=== PATIENT | female | born 1985 | race Caucasian/White ===

== ENCOUNTER 2021-06-23 02:49 | Day surgery (SDC) | payer OTHER, SELFPAY ==
[2021-06-12 15:30] VITALS: BMI 63.8
--- NOTE | 2021-06-12 15:41 | SUR.PREOP ---
Report to the Outpatient Waiting Room, entrance under the green pavilion located off [facility], at time 0600 on date _06/23/21 . OR Time: . - You will be asked a series of questions to screen for COVID 19 for your protection. - A mask is required within the hospital. - No visitors are allowed at this time. Preoperative COVID Testing Requirements: No COVID Test needed if: (proof is required; if not received patient will have Rapid Test prior to entry) - Patient has received COVID Vaccine at least 14 days prior to procedure date or - Patient has positive COVID test result within last 90 days of surgery date. COVID Test needed if above criteria is not met If not COVID vaccinated a COVID test must be conducted within 72 hours of surgery and patient is asked to isolate self from time of testing until procedure. You will go to the [facility] for your COVID testing. The [facility] site is located at the corner of [address] [facility]. You will only be called if COVID results are positive and your surgeon may reschedule your elective surgery date. Patients may have clear liquids (water, carbonated beverages, clear teas, apple juice) until 3 hours prior to surgery with a maximum of 20 ounces. - No food from midnight until time of surgery - Infants may have breast milk until 4 hours before surgery, formula 6 hours prior to surgery. - Children will be allowed to drink immediately following surgery. If applicable, please bring a bottle or sippy cup to assist with drinking. Juice, water, soda, and popsicles are readily available. For infants on formula, please bring formula the day of surgery. Pacifiers are allowed. Take the following medications with a SIP of water the morning of surgery: _synthroid,labetolol Medications to discontinue per physician ____vitamins Date to take last dose__06/21/21 Please no make-up, nail swedish, hairspray, perfume, deodorant, or body powder the day of surgery. No jewelry (including any body piercings) or valuables the day of surgery, leave them at home. Please take a shower or bath the night before, or the morning of, surgery with an antibacterial soap. Wear comfortable, loose fitting clothing. Children are encouraged to wear pajamas. - Jewelry must be removed prior to entering the operating room. Rings and piercings that are not removed may be cut off. - The hospital will not accept responsibility for valuables. - Please leave all valuables, including medications, at home the day of surgery. If you are going home after surgery, a licensed combine driver must drive you home. - NO public transportation without another adult. - We recommend that an adult stay with you for 24 hours following discharge. - We also recommend that you do not drive, make important decision, drink alcoholic beverages, or take any drugs that were not prescribed by your health care provider for at least 24 hours after your discharge time. For Pediatric surgeries, we recommend two adults accompany the child home (only one inside the building at this time). Follow any additional instructions given to you from your surgeon. Telephone instructions given to _eufemia eddy and asked if any additional questions and then verbalized understanding. Patient advised to call surgeon office or pre surgery nurse liaison [phone] if any additional questions.
[2021-06-23] MEDS: LACTATED RINGERS 1,000 ML 30 ML IV CONT (06:30)
[2021-06-23] MEDS: ACETAMINOPHEN 500 MG TABLET 1000 MG PO (06:52)
[2021-06-23 07:00] VITALS: BP 130/69; PULSE 84; RESP 16; TEMP 36.7; O2SAT 98
[2021-06-23] MEDS: SCOPOLAMINE 1.5 MG PATCH TRANSDERM (07:00)
--- NOTE | 2021-06-23 07:11 | WPDANESEPPF ---
Anes - Initial Pre Proc Eval Procedure: Operation Date: 06/23/21 07:30 Proposed Procedures p Hysteroscopy, Dilation and Curettage - Sara Freeman MD Date/Time: 06/23/21 07:11 Surgeon: Sara Freeman MD Pre Op Diagnosis: Anemia Patient Data Age: 36 Gender: F Height: 1.6 m Weight: 163.63 kg Allergies Allergy/AdvReac Type Severity Reaction Status Date / Time Sulfa (Sulfonamide Allergy Mild RASH Verified 06/12/21 15:07 Antibiotics) Home Medications Medication Instructions Recorded Confirmed Type calcium carbonate [Calcium 500] 1,200 mg PO DAILY 06/12/21 06/12/21 History cholecalciferol (vitamin D3) 10,000 unit PO DAILY 06/12/21 06/12/21 History [Vitamin D3] labetalol 200 mg PO BID 06/12/21 06/12/21 History levothyroxine [Euthyrox] 50 mcg PO DAILY 06/12/21 06/12/21 History uqisxhvjnkzy-afj-slpw-FA-vit K 1 tablet PO DAILY 06/12/21 06/12/21 History [Adults Multivitamin] Patient hx anesthesia problems: post op nausea/vomiting Family hx anesthesia problems: none Results Review: All pre-operative results and documents have been reviewed as part of the pre-operative evaluation. [facility] Social History Social History Smoking status: Former smoker Smoking end date: 05/10/06 Alcohol intake: current Drinks per week: 1 Living arrangements: with family Spiritual care concerns: No Anes - Eval Final PreProcedure Day of Procedure 06/23/21 07:11 Patient weight: super morbidly obese (super super morbid obesity) Heart: regular rate and rhythm Lungs: clear to auscultation Airway: Mallampati scale class III Neurological: alert and oriented Last oral intake: >/= 8 hours ASA classification: IV Emergent: no Anesthetic plan: proceed Anesthesia type and monitoring: general GIVS (may use LMA) and standard monitoring Results Review: All pre-operative results and documents have been reviewed as part of the pre-operative evaluation. Informed Consent: The patient's anesthetic plan and its attendant risks and benefits were discussed with the patient/family/POA. Questions were solicited and answers provided to the satisfaction of the patient/family/POA.
--- NOTE | 2021-06-23 07:18 | PM.HPGS ---
History of Present Illness History of Present Illness Consent: Risks, benefits, and alternatives have been discussed and questions answered. Patient agrees to proceed with procedure. Chief complaint: Anemia Narrative: Marlena Ruiz is a 36 year old female with regular but somewhat heavy cycles. Hemoglobin performed and noted to be 11.3. As a workup for the anemia it is recommended to proceed with D&C hysteroscopy. Risks of infection, bleeding, perforation, and possible pathology were reviewed. Patient voices understanding and agrees to proceed. Review of Systems Review of Systems: All systems reviewed & are unremarkable except as noted in HPI and below (History of present illness) [facility] Past Medical History Medical History (Updated 06/23/21 @ 07:22 by Sara Freeman MD) HTN (hypertension) Hypothyroid (normal spontaneous vaginal delivery) Social History Social History Smoking status: Former smoker Smoking end date: 05/10/06 Alcohol intake: current Drinks per week: 1 Living arrangements: with family Spiritual care concerns: No Meds Home Medications and Allergies Home Medications Medication Instructions Recorded Confirmed Type calcium carbonate [Calcium 500] 1,200 mg PO DAILY 06/12/21 06/12/21 History cholecalciferol (vitamin D3) 10,000 unit PO DAILY 06/12/21 06/12/21 History [Vitamin D3] labetalol 200 mg PO BID 06/12/21 06/12/21 History levothyroxine [Euthyrox] 50 mcg PO DAILY 06/12/21 06/12/21 History ygzltfwxmjug-seg-pkjl-FA-vit K 1 tablet PO DAILY 06/12/21 06/12/21 History [Adults Multivitamin] Allergies Allergy/AdvReac Type Severity Reaction Status Date / Time Sulfa (Sulfonamide Allergy Mild RASH Verified 06/12/21 15:07 Antibiotics) Exam Const: General: healthy appearing and alert Nutritional Appearance: obese (BMI 66.7) Orientation/consciousness: patient oriented x3 GI: GI Palp: Yes Soft to palpation, No Tenderness to palpation present (GI) and No Palpable mass present : External Female Exam: normal external appearance Speculum Exam - Vagina: normal appearance of the vagina and normal vaginal discharge Speculum Exam - Cervix: normal appearance of the cervix Bimanual exam- vagina & uterus: uterine size normal and consistency normal Bimanual Exam- Adnexa, other: normal adnexae and No adnexal tenderness Neuro: General: patient oriented x3 Assessment and Plan Assessment and plan (1) Anemia: Code(s): D64.9 - Anemia, unspecified Status: Acute Assessment and Plan: Plan to proceed with D&C hysteroscopy.
--- NOTE | 2021-06-23 07:23 | WPDHPUPDATE1 ---
History and Physical Update Update Date/Time: 06/23/21 07:23 History and Physical has been reviewed, including an updated exam of the patient. There are NO changes in the patient's condition. Risks, benefits, and alternatives have been discussed and questions answered. Patient agrees to proceed with procedure.
[2021-06-23] MEDS: KETOROLAC 30 MG/ML VIAL (*BKC) IV PUSH (07:40)
--- NOTE | 2021-06-23 07:56 | P.OP_ITS ---
Procedure Note - Detailed Date of Procedure 06/23/21 Pre-op Diagnosis Anemia Post-op Diagnosis same Procedure Performed D&C hysteroscopy Surgeon Sara Freeman MD Anesthesia MAC and local Findings Uterus sounds to 9cm. Endometrium was grossly secretory. There was some shaggy lining near the endocervical junction. Description of Procedure The patient is taken to the operating room and placed under anesthesia in the dorsal lithotomy position. She was prepped and draped in the usual sterile fashion. [place] speculum was placed in the vagina and the cervix is grasped on the anterior lip with a tenaculum. The cervix is injected in each quadrant with 1% lidocaine. The uterus is sounded to 9cm. The cervix is serially dilated with [place] to an 8. The diagnostic hysteroscope was placed. The above-stated findings are noted. The hysteroscope was removed. The medium sharp curette is used to curette the endometrium until a good uterine cry was noted in all areas. All instruments are removed. Sponge, needle, and instrument counts are correct per the OR staff. Patient is awakened from anesthesia and taken to recovery in stable condition. Estimated Blood Loss 5 Drains No Pathology yes (Endometrial curettings) Complications No immediate complications Condition stable Disposition PACU
[2021-06-23 07:59] VITALS: BP 160/85; PULSE 73; RESP 16; O2SAT 98
[2021-06-23 08:15] VITALS: BP 152/75; PULSE 72; RESP 16; O2SAT 98
[2021-06-23 08:45] VITALS: BP 139/75; PULSE 68; RESP 18
== END 2021-06-23 08:55 | disposition home or self-care (01) ==
PROVIDERS: Visit Provider Obstetrics & Gynecology Gynecology
PROC: 0U5B8ZZ Destruction of Endometrium, Via Natural or Artificial Opening Endoscopic (ICD-10-PCS; CPT 58563; principal; 2021-06-23 07:30)
DX: N84.0 Polyp of corpus uteri (principal); I10 Essential (primary) hypertension; E03.9 Hypothyroidism, unspecified; N92.0 Excessive and frequent menstruation with regular cycle; Z87.891 Personal history of nicotine dependence; E66.9 Obesity, unspecified; Z68.44 Body mass index [BMI] 60.0-69.9, adult
CPT/HCPCS: 58558; 88305; A9270; J1885; J2250; J2704; J7030; J7120